=== PATIENT | male | born 1965 | race Caucasian/White ===

== ENCOUNTER 2019-04-06 14:48 | Inpatient (IN) | payer OTHER ==
[~2019-04-06] VITALS: Ht 177.8 cm; Wt 86.2 kg
--- NOTE | 2019-04-06 14:48 | NUR ---
Patient BIBA BLS, transferred to bed 10. RN evaluating patient at bedside.
[2019-04-06 14:58] VITALS: BP 159/81
--- NOTE | 2019-04-06 15:09 | NUR ---
PT TO ED VIA EMS FOR ELEVATED BLOOD GLUCOSE. PT SEEN BY URGENT CARE MD AND REFFERED TO ED. PT DENIES ANY PAIN OR ANY COMPLAINTS AT THIS TIME. 1CM DIABETIC FOOT ULCER NOTED TO L FOOT. PT PLACED INTO BED, PENDING MD ROBBINS.
[2019-04-06] MEDS ORDERED: NACL 0.9% 1,000 ML IV SCH (15:13)
[2019-04-06] MEDS ORDERED: INSULIN REGULAR, HUMAN 100 UNIT/ML VIAL SUBQ ONE (15:15)
[2019-04-06] MEDS ORDERED: PIPERACILLIN/TAZOBACTAM 3.375 GM in DEXTROSE 5% 50 ML IV ONE (15:15)
[2019-04-06] MEDS ORDERED: THIAMINE 200 MG/2 ML VIAL IM ONE (15:15)
[2019-04-06] MEDS ORDERED: KETOROLAC 30 MG/ML VIAL IVP ONE (15:15)
[2019-04-06] MEDS ORDERED: PIPERACILLIN/TAZOBACTAM 3.375 GM VIAL IV ONE ×2 (15:36→21:42)
[2019-04-06 15:41] LABS: BASOPHILS # (AUTO) 0.1 K/uL (0.00-0.22); BASOPHILS % (AUTO) 0.7 % (0.0-2.0); EOSINOPHILS # (AUTO) 0.3 K/uL (0-0.4); EOSINOPHILS % (AUTO) 2.9 % (0.0-4.0); HEMATOCRIT 37.5 % (36-52); HEMOGLOBIN 12.3 g/dL (12.0-18.0); LYMPHOCYTES # (AUTO) 1.1 K/uL (2.0-11.5); MEAN CORPUSCULAR HEMOGLOBIN 25 pg (27-31); MEAN CORPUSCULAR HGB CONC 33 g/dL (33-37); MEAN CORPUSCULAR VOLUME 77.5 fL (80-94); MONOCYTES # (AUTO) 0.7 K/uL (0.8-1.0); MONOCYTES % (AUTO) 6.5 % (1.7-9.3); NEUTROPHILS # (AUTO) 8.5 K/uL (1.8-7.7); NEUTROPHILS % (AUTO) 79.9 % (42.2-75.2); PLATELET COUNT (AUTO) 221 K/uL (140-450); RED BLOOD CELL COUNT(AUTO) 4.84 MIL/uL (4.20-6.10); RED CELL DISTRIBUTION WIDTH 18.4 % (11.6-13.7); WHITE BLOOD COUNT (AUTO) 10.7 K/uL (4.8-10.8)
[2019-04-06 16:06] LABS: ALBUMIN 3.2 g/dL (3.4-5.0); ANION GAP 10.2 (8-16); ASPARTATE AMINOTRANSFERASE 47 U/L (15-37); CARBON DIOXIDE 24.9 mmol/L (21-32); CHLORIDE 102 mmol/L (98-107); CREATININE 1.4 mg/dL (0.7-1.3); GFR ARICAN-AMERICAN 68 mL/min (>90); POTASSIUM 5.1 mmol/L (3.5-5.1); SODIUM SERUM 132 mmol/L (136-145); TOTAL BILIRUBIN 0.3 mg/dL (0.0-1.0); UREA NITROGEN, BLOOD 45 mg/dL (7-18)
[2019-04-06 16:07] LABS: ACETONE, SERUM NEGATIVE (NEGATIVE)
--- NOTE | 2019-04-06 16:15 | NUR ---
RECEIVED CRITICAL LAB VALUE OF GLUCOSE [address] JACK HERNANDEZ MD TO SEE PT.
[2019-04-06 16:16] LABS: GLUCOSE 406 mg/dL (74-106)
[2019-04-06 16:18] LABS: MAGNESIUM 2.3 mg/dL (1.8-2.4); URIC ACID 8.2 mg/dL (2.6-7.2)
[2019-04-06 17:46] LABS: APPEARANCE,URINE CLEAR (CLEAR); BILIRUBIN,URINE NEGATIVE (NEGATIVE); BLOOD, URINE 1+ (NEGATIVE); COLOR,URINE YELLOW (YELLOW); LEUKOCYTE ESTERASE ,URINE NEGATIVE (NEGATIVE); NITRITE, URINE NEGATIVE (NEGATIVE); UGLUCOSE 3+ (NEGATIVE)
[2019-04-06 18:02] LABS: WBC,URINE 0-5 /HPF (0-5)
--- NOTE | 2019-04-06 18:30 | NUR ---
PT REMIANS SLEEPING, AROUSABLE TO VOICE. NO NEW COMPLAINTS OR CONCERNS. WILL CONTINUE TO MONITOR.
[2019-04-06] MEDS ORDERED: DEXTROSE 50% 50 ML SYR IVP PRN (19:00)
[2019-04-06] MEDS ORDERED: MORPHINE SULFATE 2 MG/ML SYR IVP PRN (19:00)
[2019-04-06] MEDS ORDERED: VANCOMYCIN PER PHARMACY MC PRN (19:00)
[2019-04-06] MEDS ORDERED: ACETAMINOPHEN 325 MG TAB PO PRN (19:00)
--- NOTE | 2019-04-06 19:17 | NUR ---
REPORT TO GUILHERME GALLOWAY
--- NOTE | 2019-04-06 19:55 | NUR ---
PT ARRIVED FROM ER VIA GURNEY. AAOX4. NO C/O PAIN OR SOB. ON ROOM AIR. IV TO LEFT FA #20G, PATENT AND INTACT. PT HAS LEFT FOOT CELLULITIS. AMBULATES WITHOUT ASSIST. NO S/S OF HYPERGLYCEMIA. DISCUSSED PLAN OF CARE, PT AND DAUGHTER WILTON VERBALIZED UNDERSTANDING. ORIENTED PT TO ROOM. SAFETY PRECAUTION IN PLACE. CALL LIGHT WITHIN REACH.
[2019-04-06 20:00] VITALS: BP 129/67
[2019-04-06] MEDS ORDERED: VANCOMYCIN 1,000 MG in DEXTROSE 5% 250 ML IV ONE (20:00)
--- NOTE | 2019-04-06 20:05 | NUR ---
Patient will be admitted to care of DR. ROSALES. Admited to [facility]. Will go to room 119A. Belongings list completed. Report to HAMMAD VANEGAS.
[2019-04-06] MEDS: NACL 0.9% 1,000 ML IV SCH (20:30)
[2019-04-06] MEDS ORDERED: VANCOMYCIN 1,000 MG VIAL ONE (20:35)
--- NOTE | 2019-04-06 20:45 | NUR ---
PT ASKED FOR SNACK. SNACK PROVIDED. ALL NEEDS ATTENDED AT THIS TIME. FAMILY AT BEDSIDE.
[2019-04-06] MEDS: INSULIN LISPRO SLIDING SCALE 100 UNITS/ML VIAL SUBQ PRN (20:47)
[2019-04-06] MEDS: INSULIN LANTUS 100 UNITS/ML 10 ML VIAL SUBQ SCH (20:48)
[2019-04-06] MEDS: BLOOD GLUCOSE MONITORING 1 DEV DEV FS SCH (20:49)
[2019-04-06] MEDS ORDERED: PIPERACILLIN/TAZOBACTAM 3.375 GM in DEXTROSE 5% 50 ML IV SCH (21:00)
--- NOTE | 2019-04-06 23:30 | NUR ---
PT SLEEPING BUT EASILY AROUSABLE. NO S/S OF PAIN OR SOB. NO S/S OF HYPERGLYCEMIA OR HYPOGLYCEMIA.
[2019-04-07] VITALS: BP 135/67
--- NOTE | 2019-04-07 02:15 | NUR ---
PT SLEEPING. NO S/S OF PAIN OR DISCOMFORT. NO RESP DISTRESS NOTED. IVF INFUSING WELL. CALL LIGHT WITHIN REACH.
[2019-04-07] MEDS ORDERED: PIPERACILLIN/TAZOBACTAM 3.375 GM VIAL IV ONE (04:16)
--- NOTE | 2019-04-07 07:15 | NUR ---
RECEIVED BEDSIDE REPORT FROM SMOKING PIPE COATER NURSE. PATIENT IS AWAKE, ALERT AND ORIENTEDX4. NO SIGNS OF DISTRESS ON RA. SKIN IS INTACT. L FOOT HAS CELLULITIS. PATIENT AMBULATES. CONTINENT. L FA 20G INFUSING NS AT 75. CLEAN, DRY AND INTACT. PATIENT ABLE TO MAKE NEEDS KNOWN. WILL CONTINUE TO MONITOR. BED IN LOW POSITION. CALL LIGHT WITHIN REACH
[2019-04-07] MEDS: BLOOD GLUCOSE MONITORING 1 DEV DEV FS SCH ×4 (07:30→21:32)
[2019-04-07 08:00] VITALS: BP 150/74
[2019-04-07 08:16] LABS: ALBUMIN 2.5 g/dL (3.4-5.0); ANION GAP 12.7 (8-16); CARBON DIOXIDE 22.2 mmol/L (21-32); CREATININE 1.3 mg/dL (0.7-1.3); POTASSIUM 4.9 mmol/L (3.5-5.1); TOTAL BILIRUBIN 0.3 mg/dL (0.0-1.0)
[2019-04-07] MEDS: NACL 0.9% 1,000 ML IV SCH ×2 (08:18→21:38)
[2019-04-07 08:26] LABS: BASOPHILS # (AUTO) 0.1 K/uL (0.00-0.22); BASOPHILS % (AUTO) 0.8 % (0.0-2.0); EOSINOPHILS # (AUTO) 0.5 K/uL (0-0.4); HEMATOCRIT 34.9 % (36-52); HEMOGLOBIN 11.3 g/dL (12.0-18.0); LYMPHOCYTES # (AUTO) 1.3 K/uL (2.0-11.5); MEAN CORPUSCULAR HEMOGLOBIN 26 pg (27-31); MEAN CORPUSCULAR HGB CONC 32 g/dL (33-37); MEAN CORPUSCULAR VOLUME 79.3 fL (80-94); MONOCYTES # (AUTO) 0.4 K/uL (0.8-1.0); MONOCYTES % (AUTO) 4.7 % (1.7-9.3); NEUTROPHILS # (AUTO) 6.5 K/uL (1.8-7.7); NEUTROPHILS % (AUTO) 73.5 % (42.2-75.2); PLATELET COUNT (AUTO) 195 K/uL (140-450); RED BLOOD CELL COUNT(AUTO) 4.41 MIL/uL (4.20-6.10); RED CELL DISTRIBUTION WIDTH 18.6 % (11.6-13.7); WHITE BLOOD COUNT (AUTO) 8.9 K/uL (4.8-10.8)
[2019-04-07] MEDS: VANCOMYCIN 1GM/DEXT 5% PREMIX 200 ML IV SCH ×2 (09:19→21:48)
[2019-04-07] MEDS: ENOXAPARIN 40 MG/0.4 ML SYR SUBQ SCH (09:22)
--- NOTE | 2019-04-07 09:23 | NUR ---
ADMINISTERED MEDS. EDUCATED ON SIDE EFFECTS. PATIENT TOLERATED WELL. WILL CONTINUE TO MONITOR THE PATIENT.
--- NOTE | 2019-04-07 11:59 | NUR ---
IV IS INFILTRATED. STOPPED THE IV INFUSION. STUDENT NURSE MIRYAM AND PROFESSOR ATTEMPTING NEW IV LINE AT THIS TIME
[2019-04-07] MEDS: INSULIN LISPRO SLIDING SCALE 100 UNITS/ML VIAL SUBQ PRN ×3 (12:45→21:35)
--- NOTE | 2019-04-07 12:45 | NUR ---
NEW IV ON R WRIST 22G INFUSING ZOSYN AT 100. CLEAN, DRY AND INTACT. ADMINISTERED PRN HUMALOG. PATIENT TOLERATED WELL. EDUCATED ON SIDE EFFECTS. FAMILY AT BEDSIDE. WILL CONTINUE TO MONITOR
[2019-04-07] MEDS ORDERED: PIPER/TAZO 3.375GM/D5W PREMIX 50 ML IV SCH (13:00)
--- NOTE | 2019-04-07 14:00 | NUR ---
PATIENT IS RESTING. NO SIGNS OF DISTRESS. BED IN LOW POSITION. CALL LIGHT WITHIN REACH
--- NOTE | 2019-04-07 15:30 | NUR ---
PATIENT SIGNED CONSENT FOR PICC LINE. EDUCATED ON RISKS AND BENEFITS. PATIENT STATES HE HAD IT BEFORE. CALLED PICC LINE NURSE AT [phone]. THEY SAID THE NURSE MIAH WILL CALL ME BACK W ETA
[2019-04-07 16:00] VITALS: BP 150/78
[2019-04-07] MEDS ORDERED: AMLO10TA PO (16:50)
[2019-04-07] MEDS ORDERED: INSU100I7 SQ (16:50)
[2019-04-07] MEDS ORDERED: GABA300C PO (16:50)
[2019-04-07] MEDS ORDERED: FURO-570 PO (16:50)
[2019-04-07] MEDS ORDERED: CARV3.12 PO (16:50)
[2019-04-07] MEDS ORDERED: LISI10TA11 PO (16:50)
[2019-04-07] MEDS ORDERED: HUM SUBQ (16:50)
--- NOTE | 2019-04-07 17:02 | NUR ---
ADMINISTERED TIESHA MED AND NEEDED HUMALOG, EDUCATED ON SIDE EFFECTS, PATIENT TOLERATED WELL. WILL CONTINUE TO MONITOR THE PATIENT
--- NOTE | 2019-04-07 19:05 | NUR ---
GAVE BEDSIDE REPORT TO FLASH DESIGNER NURSE. PATIENT ENDORSED IN STABLE CONDITION. PICC LINE SUPPLIES AT BEDSIDE. MIAH PICC LINE NURSE SAID HE WILL CALL WHEN HE IS 30 MINS AWAY
--- NOTE | 2019-04-07 19:20 | NUR ---
RECEIVED BEDSIDE REPORT FROM DAY SHIFT NURSE. PATIENT IS AWAKE, ALERT, AND COOPERATIVE. RESPIRATION EVEN UNLABORED ON ROOM AIR. NO DISTRESS NOTED. SKIN IS WARM AND DRY. IV PATENT AND INTACT. LEFT FOOT CELLULITIS NOTED. PATIENT IS AMBULATORY AND ABLE TO MAKE NEEDS KNOWN. PLAN OF CARE WAS DISCUSSED. ALL SAFETY MEASURES IN PLACE. BED IS AT LOW POSITION. CALL LIGHT WITHIN REACH AND VERBALIZES ITS USE. WILL CONTINUE TO MONITOR
--- NOTE | 2019-04-07 20:40 | NUR ---
PATIENT COMPLAINED OF 7/10 LEFT FOOT PAIN. PRN PAIN MEDS ADMINISTERED PER ORDER. WILL CONTINUE TO MONITOR
[2019-04-07] MEDS: HYDROcodone/APAP 5/325 MG 1 TAB TAB PO PRN (20:43)
[2019-04-07] MEDS: INSULIN LANTUS 100 UNITS/ML 10 ML VIAL SUBQ SCH (21:39)
[2019-04-08] VITALS: BP 126/65
--- NOTE | 2019-04-08 | NUR ---
VITALS WERE TAKEN. PATIENT IS IN STABLE CONDITION. NO DISTRESS NOTED. WILL CONTINUE TO MONITOR.
--- NOTE | 2019-04-08 02:00 | NUR ---
CHECKED PATIENT. PATIENT SLEEPING RESPIRATION EVEN UNLABORED ON ROOM AIR. NO DISTRESS NOTED. WILL CONTINUE TO MONITOR
--- NOTE | 2019-04-08 04:00 | NUR ---
CHECKED PATIENT. PATIENT SLEEPING RESPIRATION EVEN UNLABORED ON ROOM AIR. NO DISTRESS NOTED. WILL CONTINUE TO MONITOR
--- NOTE | 2019-04-08 06:37 | NUR ---
PATIENT HAS BEEN SCREENED AND CATEGORIZED HIGH NUTRITION RISK. PATIENT WILL BE SEEN WITHIN 1-2 DAYS OF ADMISSION. 04/07/19-04/08/19 GREG ROMERO MS, RDN
[2019-04-08] MEDS: BLOOD GLUCOSE MONITORING 1 DEV DEV FS SCH ×3 (06:44→16:23)
[2019-04-08 07:24] LABS: BASOPHILS # (AUTO) 0.1 K/uL (0.00-0.22); BASOPHILS % (AUTO) 0.8 % (0.0-2.0); EOSINOPHILS # (AUTO) 0.4 K/uL (0-0.4); EOSINOPHILS % (AUTO) 6.5 % (0.0-4.0); HEMATOCRIT 35.6 % (36-52); HEMOGLOBIN 11.3 g/dL (12.0-18.0); LYMPHOCYTES # (AUTO) 1.6 K/uL (2.0-11.5); LYMPHOCYTES % (AUTO) 22.8 % (20.5-51.1); MEAN CORPUSCULAR HEMOGLOBIN 25 pg (27-31); MEAN CORPUSCULAR HGB CONC 32 g/dL (33-37); MEAN CORPUSCULAR VOLUME 79.1 fL (80-94); MONOCYTES # (AUTO) 0.7 K/uL (0.8-1.0); MONOCYTES % (AUTO) 9.4 % (1.7-9.3); NEUTROPHILS # (AUTO) 4.2 K/uL (1.8-7.7); NEUTROPHILS % (AUTO) 60.5 % (42.2-75.2); PLATELET COUNT (AUTO) 203 K/uL (140-450); RED CELL DISTRIBUTION WIDTH 18.8 % (11.6-13.7); WHITE BLOOD COUNT (AUTO) 6.9 K/uL (4.8-10.8)
--- NOTE | 2019-04-08 07:25 | NUR ---
ENDORSED PATIENT TO DAY SHIFT NURSE FOR CONTINUITY OF CARE. PATIENT IS IN STABLE CONDITION.
--- NOTE | 2019-04-08 07:27 | NUR ---
RECEIVED BEDSIDE REPORT FROM GROUNDWATER MONITORING TECHNICIAN NURSE. PATIENT IS AWAKE, ALERT AND ORIENTEDX4. NO SIGNS OF DISTRESS ON RA. SKIN HAS L FOOT CELLULITIS, INTACT. PATIENT IS AMBULATORY. CONTINENT. IV ON R HAND 22G SL. AND MABEL PICC LINE DOUBLE LUMEN INFUSING NS AT 75. CLEAN, DRY AND INTACT. PATIENT ABLE TO MAKE NEEDS KNOWN. WILL CONTINUE TO MONITOR THE PATIENT
[2019-04-08 07:47] LABS: ANION GAP 13.6 (8-16); CARBON DIOXIDE 23.9 mmol/L (21-32); CREATININE 1.1 mg/dL (0.7-1.3); POTASSIUM 4.5 mmol/L (3.5-5.1)
[2019-04-08 07:48] LABS: MAGNESIUM 2.1 mg/dL (1.8-2.4); PHOSPHORUS 3.1 mg/dL (2.5-4.9)
[2019-04-08 08:00] VITALS: BP 110/66
[2019-04-08] MEDS: VANCOMYCIN 1GM/DEXT 5% PREMIX 200 ML IV SCH ×2 (09:23→18:05)
[2019-04-08] MEDS: ENOXAPARIN 40 MG/0.4 ML SYR SUBQ SCH (09:27)
--- NOTE | 2019-04-08 09:27 | NUR ---
ADMINISTERED MEDS. EDUCATED ON SIDE EFFECTS. WILL CONTINUE TO MONITOR THE PATIENT.
--- NOTE | 2019-04-08 10:47 | NUR ---
SPOKE TO ARIELLE FROM [facility] REGARDING ORDER FOR HOME HEALTH FOR IB ABX SHE SAID TO CALL [facility] ([phone]). WILL FOLLOW UP.
--- NOTE | 2019-04-08 10:54 | NUR ---
04/08/19 RD INITIAL ASSESSMENT COMPLETED PLEASE REFER TO NUTRITION ASSESSMENT UNDER CARE ACTIVITY FOR ESTIMATED NUTRITIONAL NEEDS. RD RECOMMENDATIONS: 1. CONTINUE ON CCHO 60 GM DIET TOLERATED. 2. RD WILL F/U 3-5 DAYS; MODERATE RISK. 3. RDN PROVIDED DIABETIC DIET EDUCATION TO PATIENT; PT ACCEPTED DIABETIC DIET EDUCATION. GREG ROMERO, , RDN
[2019-04-08] MEDS: NACL 0.9% 1,000 ML IV SCH (10:58)
--- NOTE | 2019-04-08 11:00 | NUR ---
PATIENT RESTING COMFORTABLY IN BED. NO SIGNS OF DISTRESS. WILL CONTINUE TO MONITOR
--- NOTE | 2019-04-08 11:17 | NUR ---
ARIELLE CALLED BACK AND GAVE [facility] NUMBER AND FAXED ORDER TO THEM.
[2019-04-08] MEDS: INSULIN LISPRO SLIDING SCALE 100 UNITS/ML VIAL SUBQ PRN (12:33)
[2019-04-08] MEDS: HYDROcodone/APAP 5/325 MG 1 TAB TAB PO PRN (12:37)
--- NOTE | 2019-04-08 12:40 | NUR ---
ADMINISTERED NEEDED INSULIN AND NEEDED PAIN MED. PATIENT TOLERATED WELL. EDUCATED ON SIDE EFFECTS. WILL CONTINUE TO MONITOR THE PATIENT. PATIENT AND MADE AWARE THAT THEY WILL BE ABLE TO GO HOME TODAY W HOMEHEALTH TOMORROW
--- NOTE | 2019-04-08 12:49 | NUR ---
SAHIL FROM [facility] SAID THEY WILL START THE IV ABX TMW TOGETHER WITH THE HOME HEALTH NURSE.
--- NOTE | 2019-04-08 13:07 | NUR ---
At 11am, Faxed the request for the home IVABT and home health to [facility]. Charge nurse made aware. will follow up.
--- NOTE | 2019-04-08 14:00 | NUR ---
PATIENT SITTING IN BED. AT BEDSIDE. WILL CONTINUE TO MONITOR THE PATIENT
--- NOTE | 2019-04-08 14:40 | NUR ---
PATIENT IS SLEEPING. NO SIGNS OF DISTRESS. WILL CONTINUE TO MONITOR THE PATIENT Addendum: 04/08/19 at 1448 by Norah Gloria RN WRONG PATIENT
[2019-04-08] MEDS ORDERED: VANC1PLA7 IV (14:41)
[2019-04-08] MEDS ORDERED: CEFT1SOL1 IV (14:41)
[2019-04-08] MEDS ORDERED: ACET-9525 PO (14:41)
[2019-04-08 16:00] VITALS: BP 134/73
--- NOTE | 2019-04-08 16:31 | NUR ---
EDUCATED PATIENT ON DISEASE PROCESS, ABN S/SX, WHEN TO GO TO THE ER, EDUCATED ON MEDS, [facility] WILL FIND A HOME HEALTH AGENCY TO GIVE HIS ANTIBIOTICS TOMORROW. GAVE PRESCRIPTION FOR [facility]. FOLLOW UP W PCP IN A WEEK. PNA REFUSED, FLU NOT IN SEASON. PATIENT VERBALIZED UNDERSTANDING AND SIGNED PAPERWORK. REMOVED IV ON HAND 22 G, TIP INTACT. COVERED PICC LINE SO PATIENT CAN SHOWER. PATIENT IN SHOWER NOW.
--- NOTE | 2019-04-08 17:17 | NUR ---
PATIENT BACK FROM SHOWER IN STABLE CONDITION. ADMINISTERED MEDS. PATIENT TOLERATED WELL. EDUCATED ON SIDE EFFECTS. WILL CONTINUE TO MONITOR THE PATIENT
--- NOTE | 2019-04-08 18:05 | NUR ---
ADMINISTERED VANCO EARLY. DR JACQUES SAID GIVE PATIENT VANCO AT 1800 AND PATIENT CAN LEAVE AFTER IT IS DONE.
--- NOTE | 2019-04-08 19:13 | NUR ---
GAVE BEDSIDE REPORT TO HARP MAKER NURSE. PATIENT ENDORSED IN STABLE CONDITION.
--- NOTE | 2019-04-08 19:14 | NUR ---
Received endorsement from AM shift RN; patient is A/Ox4, able to make needs known, Portuguese and Khmer speaking. Patient sitting at bedside; introduced self, updated board. No SOB or distress noted, on room air. IV site left upper arm PICC line, double lumen, infusing IV antibiotic at 100mL/hr. Bed in the lowest position, call light within reach. Initial assessment done. Will continue to monitor.
--- NOTE | 2019-04-08 19:42 | NUR ---
Patient discharged from unit; patient discharge papers signed and discharge packet given to patient. ID tags removed, PICC line flushed. Patient able to ambulate from unit with no assistance. Patient vitals stable upon discharge.
--- NOTE | 2019-04-09 09:06 | NUR ---
WOUND CARE CONSULT NOT DONE, PT. DISCHARGED.
== END 2019-04-08 19:42 | disposition home health service (06) | DRG 383 ==
LOC: MED 14:48 → MTU 14:48 → MED 18:28 → MTU 19:03
PROVIDERS: ADMIT Internal Medicine Pulmonary Disease; ATTEND Internal Medicine Pulmonary Disease
PROC: 02HV33Z Insertion of Infusion Device into Superior Vena Cava, Percutaneous Approach (ICD-10-PCS; principal; 2019-04-08)
PROC: B548ZZA Ultrasonography of Superior Vena Cava, Guidance (ICD-10-PCS; 2019-04-08)
DX: L03.116 Cellulitis of left lower limb (principal); I11.0 Hypertensive heart disease with heart failure; E11.65 Type 2 diabetes mellitus with hyperglycemia; I50.9 Heart failure, unspecified; Z91.14 Patient's other noncompliance with medication regimen; Z91.19 Patient's noncompliance with other medical treatment and regimen; E44.1 Mild protein-calorie malnutrition
CPT/HCPCS: 36415; 36600; 71045; 73610; 73630; 80048; 80053; 80202; 81001; 82009; 82550; 82553; 82803; 82948; 83036; 83605; 83735; 83874; 84100; 84484; 84550; 85025; 85379; 86140; 87040; 87081; 87086; 93005; 93971; 96365; 96372; 96375; 99285; C1751; J0696; J1650; J1815; J1885; J2543; J3370; J3411; J7030; J7060; Q0092